=== PATIENT | male | born 1960 | race Two or more races ===

== ENCOUNTER 2017-08-24 18:26 | Emergency (ER) | payer SELFPAY ==
[~2017-08-24] VITALS: Ht 177.8 cm; Wt 68.9 kg
[2017-08-24 22:54] LABS: BASOPHIL % 0.4 % (0-2); PLATELET COUNT 282 x10^3mcL (130-400); RED CELL DISTRIBUTION WIDTH 13.6 % (11.5-14.5)
[2017-08-24 23:03] LABS: CALCIUM 8.8 mg/dL (8.5-10.1); CARBON DIOXIDE 29.5 mmol/L (21-32); CHLORIDE SERUM 103 mmol/L (98-107); GFR1 > 60 mL/min; GLUCOSE SERUM 111 mg/dL (74-106); POTASSIUM SERUM 3.4 mmol/L (3.5-5.1); SODIUM SERUM 140 mmol/L (136-145)
[2017-08-24 23:08] LABS: ALBUMIN 4.1 g/dL (3.4-5.0); ALKALINE PHOSPHATASE 72 U/L (46-116); ALT/SGPT 23 U/L (16-63); AST/SGOT 16 U/L (15-37); BILIRUBIN TOTAL 0.72 mg/dL (0.20-1.00); LIPASE 177 IU/L (73-393); TOTAL PROTEIN, SERUM 7.9 g/dL (6.4-8.2)
[2017-08-25 00:39] VITALS: BP 135/84
== END 2017-08-25 00:39 | disposition home or self-care (01) ==
LOC: ED 18:26
PROVIDERS: Emergency Medicine
DX: K40.90 Unilateral inguinal hernia, without obstruction or gangrene, not specified as recurrent (principal)
CPT/HCPCS: 36415